=== PATIENT | female | born 1995 | race Caucasian/White ===

== ENCOUNTER 2016-09-26 08:22 | Emergency (ER) | payer OTHER ==
[~2016-09-26] VITALS: Ht 157.5 cm; Wt 96.9 kg
[~2016-09-26 08:22] MED LIST: CYCL5TAB PO; IBUP-1542 PO
[2016-09-26 08:34] VITALS: Ht 157.5 cm; Wt 96.9 kg
[2016-09-26 08:46] LABS: URINE BLOOD (Dip) POC 3+ (NEGATIVE)
[2016-09-26 09:16] LABS: ADD UMIC YES; URINE BILIRUBIN (Dip) NEGATIVE (NEGATIVE); URINE BLOOD (Dip) 3+ (NEGATIVE); URINE COLOR LT. YELLOW (YELLOW); URINE GLUCOSE (Dip) NEGATIVE (NEGATIVE); URINE KETONES (Dip) NEGATIVE (NEGATIVE); URINE LEUKOCYTE ESTERASE (Dip) NEGATIVE (NEGATIVE); URINE NITRITE (Dip) NEGATIVE (NEGATIVE); URINE TOTAL PROTEIN (Dip) NEGATIVE (NEGATIVE); URINE UROBILINOGEN (Dip) 0.2 E.U./dL (0.1-1.0)
[2016-09-26 09:27] LABS: SQUAMOUS EPITHELIAL CELL,UR FEW; URINE RBCS 0-2 /HPF (0)
--- NOTE | 2016-09-26 09:29 | ERD ---
ER Documentation Chief Complaint Date/Time DATE: 09/26/16 TIME: 09:28 Chief Complaint HAS DYSURIA X 2 DAYS HAS NAUSEA HPI This is a 21-year-old female presenting to the emergency department complaining of painful urination for the past 2 days. Patient is a poor historian. Patient rates as moderate in severity. She admits to having mild to moderate pelvic pain and flank pain. Patient denies any hematuria. She states her last menstrual period was the beginning of 29 July. She denies taking any medications for this. She denies any vaginal discharge. ROS All systems reviewed and are negative except as per history of present illness. Medications Home Meds Active Scripts Fluconazole* (Diflucan*) 150 Mg Tablet, 150 MG PO ONCE, #1 TAB Prov:RONI PERKINS PA-C 09/26/16 Cyclobenzaprine Hcl* (Cyclobenzaprine Hcl*) 5 Mg Tablet, 5 MG PO Q8H Y for PAIN , #15 TAB Prov:ARI BEASLEY PA-C 04/03/16 Ibuprofen* (Motrin*) 600 Mg Tab, 600 MG PO Q6, #20 TAB Prov:ARI BEASLEY PA-C 04/03/16 Allergies Allergies: Coded Allergies: No Known Allergy (Unverified , 09/26/16) PMhx/Soc Medical and Surgical Hx: pt denies Medical Hx, pt denies Surgical Hx Hx Alcohol Use: Yes Hx Substance Use: No Hx Tobacco Use: No Smoking Status: Never smoker Physical Exam Vitals Vital Signs Date Time Temp Pulse Resp B/P Pulse Ox O2 Delivery O2 Flow Rate FiO2 09/26/16 11:56 98.1 78 18 126/76 98 Room Air 09/26/16 08:34 97.3 68 18 132/64 98 Physical Exam GENERAL: well-developed/well-nourished, in no apparent distress, non-toxic appearing HENT: NC/AT, moist mucous membranes EYES: Conjunctiva normal NECK: Supple, no lymphadenopathy PULM: CTA bilaterally, no rales, rhonchi, or wheezing heard CV: Normal S1S2, RRR, good capillary refill GI: Soft, non-distended, very mild tenderness to palpation of the pelvic region Normal bowel sounds, no masses or organomegaly felt on exam No gross peritonitis, no bruits Negative Rovsing, negative Rodriguez, negative McBurney's point, Negative CVAT BACK: No masses EXT: No clubbing, cyanosis, or edema NEURO: Alert and Orientated SKIN: Intact, normal turgor PSYCH: Normal mood and mentation Results 24 hrs Laboratory Tests Test 09/26/16 08:49 09/26/16 09:00 Bedside Urine Blood 3+ Bedside Urine Glucose (UA) Negative Bedside Urine Ketones (LAB) Negative Bedside Urine Leukocyte Esterase (L Negative Bedside Urine Nitrite (LAB) Negative Bedside Urine Protein (LAB) Negative Bedside Urine pH (LAB) 6.5 Urine Bilirubin NEGATIVE Urine Clarity CLEAR Urine Color LT. YELLOW Urine Glucose NEGATIVE% Urine Hemoglobin 3+ Urine Ketones NEGATIVE Urine Leukocyte Esterase NEGATIVE Urine Microscopic RBC 0-2/HPF Urine Microscopic WBC NONE SEEN/HPF Urine Nitrite NEGATIVE Urine Specific [place] <=1.005 Urine Squamous Epithelial Cells FEW Urine Total Protein NEGATIVE Urine Urobilinogen 0.2 E.U./dL Urine pH 6.0 Procedures/MDM This is a 21-year-old female presenting to the emergency room complaining of dysuria for the past 2 days. Patient is a poor historian. On examination, patient appears well she does not seem to be in any distress. She is afebrile. Her abdominal examination was unremarkable. A urinalysis was done in the ED and it did not show any evidence of leukocyte esterase, white count or nitrite. There was some evidence of hemoglobin. Patient's last menstrual period was 2 week months ago however she is irregular. Urine test is negative. Pelvic ultrasound was unremarkable. I discussed with patient that she is suitable to follow-up with her [facility] for further action management. A urine culture and gonorrhea chlamydia urine was sent out at this time I will low suspicion for any STD or PID. In my discussion with the patient she states that she does have some vaginal itchiness therefore a prescription for Diflucan was provided for possible yeast candidiasis, she does not have any vaginal discharge and does not appear to be comfortable for pelvic exam. A list of OB/ [facility] clinicians have been provided for the patient. Patient is to follow-up with precautions to return to the ER for any worsening signs or symptoms. She understands and agrees with this plan Departure Diagnosis: Primary Impression: Dysuria Condition: Stable Patient Instructions: Dysuria Referrals: DOCTOR,NOT ON STAFF (PCP) COMM[facility]ITY CLIN[facility] YOU HAVE RECEIVED A MEDICAL SCREENING EXAM AND THE RESULTS INDICATE THAT YOU DO NOT HAVE A CONDITION THAT REQUIRES URGENT TREATMENT IN THE EMERGENCY DEPARTMENT. FURTHER EVALUATION AND TREATMENT OF YOUR CONDITION CAN WAIT UNTIL YOU ARE SEEN IN YOUR DOCTORS OFFICE WITHIN THE NEXT 1-2 DAYS. IT IS YOUR RESPONSIBILITY TO MAKE AN APPOINTMENT FOR FOLOW-UP CARE. IF YOU HAVE A PRIMARY DOCTOR --you should call your primary doctor and schedule an appointment IF YOU DO NOT HAVE A PRIMARY DOCTOR YOU CAN CALL OUR PHYSICIAN REFERRAL HOTLINE AT IF YOU CAN NOT AFFORD TO SEE A PHYSICIAN YOU CAN CHOSE FROM THE FOLLOWING [facility] [address] [facility] [address] [facility] [facility] [address] [facility] [address] [facility] [address] [facility] [facility] [address] Additional Instructions: FOLLOW UP WITH YOUR PRIMARY CARE PHYSICIAN TOMORROW.Return to this facility if you are not improving as expected. Take all medicines as directed. Return to this facility if you are not improving as expected. RONI PERKINS PA-C Sep 26, 2016 09:29
--- NOTE | 2016-09-26 10:18 | RADRPT ---
PROCEDURE: US Pelvis CLINICAL INDICATION: pain TECHNIQUE: Multiple sonographic images of the pelvis were obtained utilizing a transabdominal and endovaginal technique. The images were reviewed on a PACS workstation. COMPARISON: None. FINDINGS: The uterus measures 6.0 x 2.9 x 3.1 cm. The endometrial echo complex measures 4 mm in thickness. A n intrauterine device is noted with its superior margin at the level of the mid uterine body. The right ovary measures 2.8 x 2.1 x 2.3 cm. The left ovary measures 3.2 x 1.9 x 2.4 cm. There is no rmal vascular flow in both ovaries. No significant ovarian lesions are seen. No significant pelvic free fluid is identified. IMPRESSION: An intrauterine device is noted with the superior margin at the level of the mid uterine body. Otherwise, unremarkable pelvic ultrasound. RPTAT: EE Physician Radha Date Time Electronically viewed and signed by Physician Radha on 09/26/2016 10:18 /
[2016-09-26] MEDS ORDERED: FLUC150T17 PO (11:47)
[2016-09-26 11:56] VITALS: BP 126/76; PULSE 78; RESP 18; TEMP 98.1
--- NOTE | 2016-09-26 13:31 | RADRPT ---
PROCEDURE: Retroperitoneal US. CLINICAL INDICATION: Flank pain TECHNIQUE: Multiple sonographic images of the kidneys and retroperitoneum were obtained. The imag es were reviewed on a PACS workstation. COMPARISON: No prior studies are available for comparison. FINDINGS: The kidneys are normal in size, contour, cortical thickness and cortical echogenicity. The right kidney measures 9.7 cm. The left kidney measures 9.7 cm. No kidney stones are visualized. There is minimal right-sided hydronephrosis. The urinary bladder is partially distended and not well seen. RPTAT: AA IMPRESSION: Minimal right-sided hydronephrosis. .Jass Wiley MD, Date Time Electronically viewed and signed by .Jass Wiley MD, MD on 09/26/2016 09:59 .S/
== END 2016-09-26 11:57 | disposition home or self-care (01) ==
LOC: FTE 08:22
DX: R30.0 Dysuria (principal); R10.2 Pelvic and perineal pain
CPT/HCPCS: 76775; 76830; 76856; 81001; 81003; 87086; 87591